=== PATIENT | male | born 1990 | race Caucasian/White ===

== ENCOUNTER 2023-10-25 12:08 | Emergency (ER) | payer BC, SELFPAY ==
[2023-10-25 12:32] VITALS: BP 112/78
--- NOTE | 2023-10-25 14:08 | ED.SKININJ ---
HPI-Injury
General
Chief Complaint: Eye Problems
Source: patient
Exam Limitations: none
Time Seen by Provider: 10/25/23 13:48
Travel History
Have you had any contact with someone who has COVID-19?: No
Do you have any symptoms of coronavirus? Fever > 100 degrees, chills, cough, shortness of breath, sore throat, loss of taste or smell, muscle aches, or headache?: No
History of Present Illness-Injury
Initial Injury comments:
33-year-old male presents with irritation to right eye that started today. A glass dish broke. He was cleaning up the pieces of the glass and he started to feel some irritation in his right eye. There is no vision disturbance no photosensitivity.
He states since waiting that discomfort has completely resolved. He denies any vision change. He denies any eye pain. He does not wear glasses or contacts. No other COVID this time
Past History
Past History
ED Past Medical History: GERD, Psychiatric (Anxiety) and Other (ADHD, ,IBS)
ED Past Surgical History: None
Social History
Tobacco: Former smoker
Alcohol: Occasional
Personal:
Living: with family
Phy Exam
Physical Exam
Physical Exam:
General: Well-appearing male no acute respiratory distress
HEENT: Normocephalic atraumatic
Right eye was examined with fluorescein stain and White lamp. Lids were everted. There is no retained foreign body. There is no evidence of corneal abrasion. Pupil round no hyphema
Surrounding skin is without erythema
Course
Vital Signs
Initial and Last Documented VS:
Initial Vital Signs
Temp Pulse Resp BP Pulse Ox
98.1 F 80 16 112/78 99
10/25/23 12:32 10/25/23 12:32 10/25/23 12:32 10/25/23 12:32 10/25/23 12:32
Last Documented Vital Signs
Temp Pulse Resp BP Pulse Ox
98.1 F 80 16 112/78 99
10/25/23 12:32 10/25/23 12:32 10/25/23 12:32 10/25/23 12:32 10/25/23 12:32
MDM/Problems Addressed
Differential Diagnosis Includes:
Right eye discomfort transient now resolved. Differential could be small foreign body that has resolved on its own versus corneal abrasion. The eye was examined and there is no evidence of retained foreign body or abrasion. There is no vision
disturbance. He has no symptoms. At this point no indication for any further intervention. Stable for discharge
*Critical Care Note
Total Time (30-74mins, 75-104mins- exclusive of procedures): Not Applicable
ED Attending Note
-
Portions of this chart may have been created with voice recognition software.� Occasional wrong word or��sound alike� substitutions may have occurred due to the inherent limitations of voice recognition software.
Discharge Plan
Departure
Patient Disposition: Home (Routine Discharge)
Date of Disposition: 10/25/23
Time of Disposition: 14:15
Patient with high blood pressure during this ER visit?: No
Discharge Problem:
Discomfort of right eye
Instructions: Foreign Body in Eye (DC)
Prescriptions:
No Action
clonazepam [Klonopin] 0.5 mg Tablet
0.5 mg PO BID
omeprazole 40 mg Capsule,Delayed Release(Dr/Ec)
40 mg PO DAILY
Vyvanse 50 mg Capsule
50 mg PO DAILY
Linzess 72 mcg Capsule
72 mcg PO DAILY
Referrals:
NONE,* [Family Provider] -
Activity Restrictions/Additional Instructions:
Please return here for worsening symptoms otherwise follow-up with eye doctor for 6
Interventions
Interventions:
*General Assessment Last Done: 10/25/23 12:32
*ED COVID-19 Vaccine History Last Done: 10/25/23 12:32
== END 2023-10-25 14:48 | disposition home or self-care (01) ==
LOC: EMR 12:08
PROVIDERS: EMERGENCY PHYSICIAN Emergency Medicine
DX: H57.11 Ocular pain, right eye (principal); Z87.891 Personal history of nicotine dependence
CPT/HCPCS: 99283

== ENCOUNTER 2024-05-02 11:50 | Emergency (ER) | payer BC, SELFPAY ==
[2024-05-02 12:00] VITALS: BP 143/86
[2024-05-02 12:35] LABS: % Basophils 0.2 % (0-2); % Eosinophils 0.6 % (0-6); % Immature Granulocytes 0.5 % (0-0.5); % Lymphocytes 5.8 % (20.5-51.1); % Monocytes 5.2 % (1.7-9.3); % Neutrophils 87.7 % (42.2-75.2); Absolute Eosinophils 0.1 10^3/uL (0-0.7); Absolute Immature Granulocytes 0.1 10^3/uL (0-0.05); Absolute Lymphocytes 0.9 10^3/uL (1.2-3.4); Absolute Monocytes 0.8 10^3/uL (0.1-0.6); Absolute Neutrophils 13.8 10^3/uL (1.4-6.5); Hematocrit 47.2 % (39.0-52.0); Hemoglobin 16.3 g/dL (13.0-18.0); Mean Corp Hgb Conc. 34.5 g/dL (33.0-37.0); Mean Corpuscular Hgb 30.2 pg (27.0-31.0); Mean Corpuscular Volume 87.4 fL (80.0-94.0); Mean Platelet Volume 8.8 fL (7.4-10.4); Nucleated Red Blood Cells % 0 % (-); Platelet Count 281 10^3/uL (130-400); Red Cell Dist. Width 12.7 % (11.5-14.5); White Blood Cell Count 15.7 10^3/uL (4.8-10.8)
[2024-05-02 13:03] LABS: ALT (SGPT) 52 U/L (0-50); AST (SGOT) 29 U/L (17-59); Albumin 5.8 g/dl (3.5-5.0); Alkaline Phosphatase 122 U/L (38-126); Blood Urea Nitrogen 20 mg/dl (9-20); Calcium 10.9 mg/dl (8.4-10.2); Carbon Dioxide 28 mmol/L (22-30); Chloride 103 mmol/L (98-107); Lipase 93 U/L (23-300); Potassium 3.8 mmol/L (3.5-5.1); Sodium 143 mmol/L (135-145); Total Protein 8.8 g/dl (6.3-8.2); eGFR > 60.00
--- NOTE | 2024-05-02 13:09 | ED.GENMED ---
History of Present Illness
General
Chief Complaint: Abdominal Symptoms
Source: patient
Time Seen by Provider: 05/02/24 12:56
History of Present Illness
History of Present Illness:
33yoM with a history of ADHD, anxiety, and GERD presenting for evaluation of vomiting and diarrhea. Symptoms began around 1am this morning. Patient has been having persistent vomiting since his symptoms began. He estimates that he has vomited about
10x. He also is having diarrhea. He has intermittent abdominal pain but he denies any pain at this time. Patient had [place] food for dinner last night. He reports a history of similar vomiting episodes in the past but he does not typically have to
come to the ED. He smokes marijuana daily. No previous abdominal surgeries.
Past History
Past History
ED Past Medical History: GERD, Psychiatric (Anxiety) and Other (ADHD, ,IBS)
ED Past Surgical History: None
Social History
Tobacco: Former smoker
Alcohol: Occasional
Personal:
Living: with family
Phy Exam
General Physical Exam
General Presentation: well appearing and no apparent distress
General age: appears stated age
General Skin: warm and dry
General Habitus: normal
General Mental: alert
Cardiovascular Exam
Cardiovascular Exam: regular rate/rhythm, no edema and no murmur
Pulmonary Exam
Pulmonary Exam: lungs clear, no respiratory distress, no crackles and no wheezing
Gastrointestinal Exam
Gastrointestinal Exam: soft, non distended and tender (Mild tenderness in epigastrium. No guarding, rebound, or rigidity. )
Skin Exam
Skin Exam: normal color and warm/dry
Psychiatric Exam
Psychiatric Exam: normal mood/affect
Course
Orders/Labs/Results
Orders:
Orders
05/02/24 12:08
Complete Blood Count/With Diff Urgent
Comprehensive Metabolic Panel Urgent
Lipase Urgent
05/02/24 13:07
0.9% Sodium Chloride 1000 ml [Nss] 1,000 ml IV BOLUS
Famotidine [Pepcid] 20 mg IV NOW STA
Ondansetron Injectable [Zofran] 4 mg IV NOW STA
Abnormal Lab Results
05/02/24
12:08
WBC 15.7 H 10^3/uL
(4.8-10.8)
Abs Immat Gran (auto) 0.1 H 10^3/uL
(0-0.05)
Absolute Neuts (auto) 13.8 H 10^3/uL
(1.4-6.5)
Absolute Lymphs (auto) 0.9 L 10^3/uL
(1.2-3.4)
Absolute Monos (auto) 0.8 H 10^3/uL
(0.1-0.6)
Neutrophils % 87.7 H %
(42.2-75.2)
Lymphocytes % 5.8 L %
(20.5-51.1)
Glucose 129 H mg/dl
(70-99)
Calcium 10.9 H mg/dl
(8.4-10.2)
ALT 52 H U/L
(0-50)
Total Protein 8.8 H g/dl
(6.3-8.2)
Albumin 5.8 H g/dl
(3.5-5.0)
05/02/24 12:08
05/02/24 12:08
Vital Signs
Initial and Last Documented VS:
Initial Vital Signs
Temp Pulse Resp BP Pulse Ox
98.5 F 98 16 143/86 98
05/02/24 12:00 05/02/24 12:00 05/02/24 12:00 05/02/24 12:00 05/02/24 12:00
Last Documented Vital Signs
Temp Pulse Resp BP Pulse Ox
98.5 F 98 16 143/86 98
05/02/24 12:00 05/02/24 12:00 08/05/24 12:00 05/02/24 12:00 05/02/24 12:00
MDM/Problems Addressed
Differential Diagnosis Includes:
33yoM here with vomiting and diarrhea that began at 1am. Ate [place] food for dinner. Also smokes marijuana daily. He is afebrile and hemodynamically stable. He is well-appearing in no acute distress. There is mild tenderness in the epigastrium.
Abdominal exam otherwise unremarkable without signs of peritonitis. Differential diagnosis includes but is not limited to: Gastroenteritis, cannabinoid hyperemesis syndrome, gastritis, pancreatitis, dehydration, electrolyte abnormality, CHRISTOS
Initial ED plan: Check abdominal labs. Defer imaging at this time given benign exam. IV Zofran, Pepcid, and fluid bolus for symptoms.
*Critical Care Note
Total Time (30-74mins, 75-104mins- exclusive of procedures): Not Applicable
Update Note
Update Note:
Labs reveal a leukocytosis with a white count of 15. This is likely reactive secondary to vomiting. Electrolytes and renal function are normal. Patient feeling significantly improved after medications. He was able to tolerate ice chips. No
episodes of vomiting during ED stay. He is stable for discharge. Suspect gastroenteritis. Prescription for Zofran provided and supportive care discussed. Advised follow-up with PCP and ED return precautions discussed. Patient discharged in
stable condition.
ED Attending Note
-
Portions of this chart may have been created with voice recognition software.� Occasional wrong word or��sound alike� substitutions may have occurred due to the inherent limitations of voice recognition software.
Discharge Plan
Departure
Patient Disposition: Home (Routine Discharge)
Date of Disposition: 05/02/24
Time of Disposition: 15:54
Patient with high blood pressure during this ER visit?: Yes
Discharge Problem:
Nausea, vomiting, and diarrhea
Instructions: Nausea and Vomiting, Adult (DC)
Prescriptions:
New
ondansetron 4 mg tablet,disintegrating
4 mg PO Q6H PRN (Reason: nausea and vomiting) Qty: 20 0RF
No Action
clonazepam [Klonopin] 0.5 mg Tablet
0.5 mg PO BID
omeprazole 40 mg Capsule,Delayed Release(Dr/Ec)
40 mg PO DAILY
Vyvanse 50 mg Capsule
50 mg PO DAILY
Linzess 72 mcg Capsule
72 mcg PO DAILY
Referrals:
UNKNOWN - PT DOES,NOT KNOW [Family Provider] -
Activity Restrictions/Additional Instructions:
Take Zofran as needed for nausea. Drink plenty of fluids and eat a bland diet (rice, applesauce, toast).
Please follow-up with your family doctor in 2-3 days. Return to the ER with any worsening symptoms, severe pain, or inability to keep down liquids.
Interventions
Interventions:
[id number] Assessment Last Done: 05/02/24 13:50
Discharge Date and Time
Print Language: [id number]
[2024-05-02] MEDS: NSS 1000 IV (13:46)
[2024-05-02] MEDS: ZOFRAN 4 MG IV (13:47)
[2024-05-02] MEDS: PEPCID 20 MG IV (13:47)
[2024-05-02 13:49] LABS: Glucose 129 mg/dl (70-99); Total Bilirubin 0.8 mg/dl (0.2-1.3)
== END 2024-05-02 16:46 | disposition home or self-care (01) ==
LOC: EMR 11:50
PROVIDERS: EMERGENCY PHYSICIAN Emergency Medicine
DX: R19.7 Diarrhea, unspecified (principal); R11.2 Nausea with vomiting, unspecified; R10.9 Unspecified abdominal pain; R03.0 Elevated blood-pressure reading, without diagnosis of hypertension; F12.90 Cannabis use, unspecified, uncomplicated; F90.9 Attention-deficit hyperactivity disorder, unspecified type; F41.9 Anxiety disorder, unspecified; K21.9 Gastro-esophageal reflux disease without esophagitis; K58.9 Irritable bowel syndrome, unspecified; Z87.891 Personal history of nicotine dependence
CPT/HCPCS: 99284; 96374; 96375; 96361; 80053; 83690; 85025